=== PATIENT | female | born 1940 | race American Indian/Alaskan Native ===

== ENCOUNTER 2016-11-04 11:58 | Emergency (ER) | payer MEDICARE, OTHER ==
[2016-11-04 12:08] VITALS: BP 136/84
[2016-11-04] MEDS ORDERED: HYDROmorphone 1 MG/ML SYRINGE IM STA (12:58)
[2016-11-04] MEDS ORDERED: PROMETHAZINE 25 MG/1 ML VIAL IM STA (12:59)
[2016-11-04] MEDS ORDERED: DEXAMETHASONE 10 MG/ML VIAL PO STA (12:59)
[2016-11-04] MEDS ORDERED: PROMETHAZINE 25 MG/1 ML VIAL ONE (13:07)
[2016-11-04] MEDS ORDERED: DEXAMETHASONE 10 MG/ML VIAL ONE (13:07)
[2016-11-04] MEDS ORDERED: HYDROmorphone 1 MG/ML SYRINGE ONE (13:07)
--- NOTE | 2016-11-04 14:14 | XRAY Preliminary Report ---
Exam: XR Lumbar Spine 2 View IMPRESSION: 1. Grade 1 anterior listhesis of L4 on L5 measuring 6 mm. 2. Mild to moderate severe degenerative disk disease throughout the lumbar spine, as above. 3. 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 [facility] SITE ID: [id number]
--- NOTE | 2016-11-04 14:17 | XRAY Report ---
EXAM: LUMBOSACRAL SPINE RADIOGRAPHY EXAM DATE: 11/04/2016 01:08 PM. CLINICAL HISTORY: Acute low back pain, radiating to left leg. COMPARISONS: None. TECHNIQUE: 3 views. FINDINGS: Alignment: Grade 1 anterior listhesis of L4 on L5 measuring 6 mm. Bones: Five jih-qmc-vgklkoc lumbar vertebral bodies are present. No fractures or bone lesions. Disks: Severe degenerative disk disease at L5-S1. Moderate degenerative disk disease at L4-L5 and L1- L2 and mild degenerative disk disease at L2-L3. 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 Sacroiliac Joints: Unremarkable. Soft Tissues: Atherosclerotic disease of the abdominal aorta. IMPRESSION: 1. Grade 1 anterior listhesis of L4 on L5 measuring 6 mm. 2. Mild to moderate severe degenerative disk disease throughout the lumbar spine, as above. 3. 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 [facility] Referring Provider Line: [phone] SITE ID: [id number]
--- NOTE | 2016-11-04 14:44 | ED Physician Documentation ---
PD HPI BACK PAIN - Stated complaint Stated Complaint: L HIP PX - Chief complaint Chief Complaint: Ext Problem - History obtained from History obtained from: Patient, Family (Spouse) - History of Present Illness Timing - onset: How many days ago (2) Timing - details: Still present Location: Left Quality: Pain Associated symptoms: No: Fever, Weakness, Numbness, Incontinent of urine Worsened by: Movement, Twisting Similar symptoms before: No diagnosis - Additional information Additional information: The patient is a pleasant 76-year-old female who presents complaining of left hip pain that started 2 days ago and became worse this morning. The pain radiates from her left sciatic region down her anterolateral thigh to her knee. She denies fever, numbness or weakness, or urinary incontinence. She denies any recent fall or other traumatic injury. She reports history of similar symptoms intermittently in the past, but never this bad before. She has history of arthritis, and has attributed her left hip pain to arthritis. Review of Systems Constitutional: denies: Fever Ears: denies: Tinnitus/ringing Nose: denies: Congestion Throat: denies: Sore throat Cardiac: denies: Chest pain / pressure Respiratory: denies: Dyspnea, Cough GI: denies: Abdominal Pain, Nausea, Vomiting : denies: Dysuria, Incontinent Skin: denies: Rash Musculoskeletal: reports: Back pain, Extremity pain (left hip). 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 HEENT: Cataracts - Present Medications Home Medications: Ambulatory Orders Medication Instructions Recorded Confirmed Aspirin [Aspir-Low] 1 tab DAILY 09/15/15 Cyclobenzaprine HCl 09/15/15 Metoprolol Tartrate 25 mg PO BID 09/15/15 09/15/15 Simvastatin 20 mg PO DAILY 09/15/15 09/15/15 Triamterene/Hydrochlorothiazid 1 tab PO DAILY 09/15/15 09/15/15 [Triamterene-Hctz 37.5-25 mg Cp] oxyCODONE [Roxicodone] 5 mg PRN 09/15/15 Cyclobenzaprine [Flexeril] 10 mg PO TID PRN #20 tablet 11/04/16 Diclofenac Sodium [Voltaren] 11/04/16 Fluticasone Propionate 16 gm NS DAILY 11/04/16 11/04/16 HYDROcod/ACETAM 5/325 [[place] 5/325] 1 - 2 ea PO Q6H PRN #20 tablet 11/04/16 - Allergies Allergies/Adverse Reactions: Allergies Allergy/AdvReac Type Severity Reaction Status Date / Time codeine Allergy Unknown Verified 11/04/16 12:08 erythromycin base Allergy Unknown Verified 11/04/16 12:08 - Social History Does the pt smoke?: Yes Smoking Status: Current every day smoker Does the pt drink ETOH?: Yes Does the pt have substance abuse?: No PD ED PE NORMAL - Vitals Vital signs reviewed: Yes (borderline hypertension.) - General General: Alert and oriented X 3, Well developed/nourished - HEENT HEENT: Atraumatic - Neck Neck: No bony TTP - Cardiac Cardiac: RRR, No murmur - Respiratory Respiratory: No respiratory distress, Clear bilaterally - Abdomen Abdomen: Soft, Non tender, Other (Rotund abdomen.) - Back Back: No CVA TTP, No spinal TTP, Other (There is tenderness to palpation over the left sacroiliac joint. There is no tenderness to palpation over spinous processes.) - Derm Derm: No rash - Extremities Extremities: No edema, No calf tenderness / cord, Other (Straight leg raise test is positive on the left at 30 elevation; negative on the right.) - Neuro Neuro: Alert and oriented X 3, No motor deficit, No sensory deficit, Other ( Deep tendon reflexes are 2+ and equal bilaterally at the patellar and Achilles tendons.) Results - Vitals Vitals: Oxygen O2 Source Room air - Rads (name of study) Lumbar Spine Radiology: Prelim report reviewed, EMP read contemporaneously, See rad report ( Grade 1 anterior listhesis of L4 on L5, measuring 6 mm. Mild to moderate severe degenerative disc disease throughout the lumbar spine. 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 Because of her age lumbar x-rays were performed. These revealed degenerative disease, without lytic lesion. Treatment in the emergency department included administration of dexamethasone 10 mg orally, and hydromorphone 2 mg Im with Phenergan 12.5 mg IM. Her symptoms markedly improved with the above treatment, and she demonstrated ability to ambulate with a steady gait. She is being discharged with prescriptions for Flexeril and for Vicodin, 20 tablets. I discussed with her and her the likely diagnosis, symptomatic treatment and outpatient follow-up, as well as potentially worrisome signs or symptoms that should prompt reevaluation in the emergency department. Departure - Departure Disposition: 01 Home, Self Care Clinical Impression: Sciatica of left side Condition: Stable Instructions: ED Sciatica Follow-Up: Zander Hernadez MD [Primary Care Provider] - Prescriptions: Cyclobenzaprine [Flexeril] 10 mg PO TID PRN #20 tablet PRN Reason: Spasms HYDROcod/ACETAM 5/325 [[place] 5/325] 1 - 2 ea PO Q6H PRN #20 tablet PRN Reason: Pain Comments: Apply ice pack to your lower back intermittently for the next 4 days. You can use Vicodin as prescribed if needed for pain. You can use Flexeril as prescribed if needed for muscle spasms. Let pain be your guide to activity level. Follow-up with your primary physician within 1-2 weeks. Call to schedule an appointment. Return to the emergency department if you develop increasing pain despite the pain medication, or otherwise worsening symptoms. Discharge Date/Time: 11/04/16 15:08
== END 2016-11-04 15:08 | disposition home or self-care (01) ==
LOC: ED 11:58
DX: M54.42 Lumbago with sciatica, left side (principal); I10 Essential (primary) hypertension; E78.00 Pure hypercholesterolemia, unspecified; M19.90 Unspecified osteoarthritis, unspecified site; Z79.82 Long term (current) use of aspirin; F17.200 Nicotine dependence, unspecified, uncomplicated
CPT/HCPCS: 72100; 96372; 99283; J1170

== ENCOUNTER 2016-11-12 11:31 | Outpatient (CLI) | payer MEDICARE, OTHER ==
--- NOTE | 2016-11-13 14:24 | Mammography Report ---
DIGITAL SCREENING MAMMOGRAM: 11/12/2016 CLINICAL INDICATION: A 76-year-old with family history of breast cancer, history of benign biopsy, fo r screening. COMPARISON: 10/2014, 09/2013, 09/2012, 08/2011, 08/2010, 08/2009. TECHNIQUE: Routine CC and MLO projections were obtained of the breasts. FINDINGS: The breasts again demonstrate heterogeneously dense fibroglandular parenchyma bilaterally. There is a possible obscured nodule in the right upper inner posterior breast. Further evaluation wi th spot compression views and possible ultrasound is recommended. Coarse, typically benign calcificat ions are present. No mammographically suspicious findings are appreciated in the left breast. IMPRESSION: INCOMPLETE EXAMINATION. RECOMMENDATION: ADDITIONAL EVALUATION OF THE RIGHT BREAST ABOVE. BIRADS CATEGORY 0-INCOMPLETE. STANDARD QUALIFYING STATEMENTS 1. This examination was reviewed with the aid of Computer-Aided Detection (CAD). 2. A negative or benign imaging report should not delay biopsy if clinically suspicious findings are present. Consider surgical consultation if warranted. More than 5% of cancers are not identified by i maging. 3. Dense breasts may obscure an underlying neoplasm. JOB #: [id number] EXT JOB #:[id number]
== END 2016-11-12 11:32 | disposition home or self-care (01) ==
LOC: DI.N 11:31
PROVIDERS: ATTEND Physician Assistant
DX: Z12.31 Encounter for screening mammogram for malignant neoplasm of breast (principal)
CPT/HCPCS: 77067

== ENCOUNTER 2016-11-15 13:44 | Outpatient (CLI) | payer MEDICARE, OTHER ==
--- NOTE | 2016-11-15 15:40 | XRAY Report ---
LEFT HIP AND PELVIS: 11/15/2016 CLINICAL INDICATION: Left hip pain. FINDINGS: Frontal view of the hips and pelvis and frogleg lateral view of the left hip demonstrate m ild osteoarthritis. There is no evidence of fracture or dislocation. No radiopaque foreign body is appreciated in the soft tissues. IMPRESSION: MILD LEFT HIP OSTEOARTHRITIS. JOB #: [id number] EXT JOB #:[id number]
== END 2016-11-15 13:45 | disposition home or self-care (01) ==
LOC: DI.N 13:44
PROVIDERS: ATTEND Internal Medicine
DX: M25.552 Pain in left hip (principal); M16.12 Unilateral primary osteoarthritis, left hip

== ENCOUNTER 2016-11-23 12:38 | Emergency (ER) | payer MEDICARE, OTHER ==
--- NOTE | 2016-11-23 13:19 | ED Physician Documentation ---
PD HPI ABD PAIN - Stated complaint Stated Complaint: FEMALE - Chief complaint Chief Complaint: Abd Pain - History obtained from History obtained from: Patient - History of Present Illness Timing - onset: Yesterday Timing - details: Gradual onset, Waxing and waning Quality: Aching Location: Suprapubic Radiation: No: Left flank, Right flank Improved by: No: Eating Worsened by: No: Eating Associated symptoms: Fever, Nausea, Dysuria, Loss of appetite. No: Vomiting, Diarrhea, Chest pain, Near syncope / syncope Similar symptoms before: Diagnosis (UTI a month ago, Rx with ?Bactrim) Review of Systems Constitutional: reports: Fever, Chills Nose: denies: Rhinorrhea / runny nose, Congestion Throat: denies: Sore throat Respiratory: denies: Cough GI: reports: Abdominal Pain, Nausea. denies: Vomiting, Diarrhea : reports: Dysuria, Frequency. denies: Hematuria, Discharge Skin: denies: Rash, Lesions Neurologic: reports: Generalized weakness. 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 HEENT: Cataracts - Present Medications Home Medications: Ambulatory Orders Medication Instructions Recorded Confirmed Aspirin [Aspir-Low] 1 tab DAILY 09/15/15 Cyclobenzaprine HCl 09/15/15 Metoprolol Tartrate 25 mg PO BID 09/15/15 09/15/15 Simvastatin 20 mg PO DAILY 09/15/15 09/15/15 Triamterene/Hydrochlorothiazid 1 tab PO DAILY 09/15/15 09/15/15 [Triamterene-Hctz 37.5-25 mg Cp] oxyCODONE [Roxicodone] 5 mg PRN 09/15/15 Cyclobenzaprine [Flexeril] 10 mg PO TID PRN #20 tablet 11/04/16 Diclofenac Sodium [Voltaren] 11/04/16 Fluticasone Propionate 16 gm NS DAILY 11/04/16 11/04/16 HYDROcod/ACETAM 5/325 [[place] 5/325] 1 - 2 ea PO Q6H PRN #20 tablet 08/21/17 Cephalexin [Keflex] 500 mg PO QID #24 capsule 11/23/16 Ondansetron Odt [Zofran] 4 mg TL Q6H PRN #15 tablet 11/23/16 Phenazopyridine [Pyridium] 200 mg PO TID PRN #15 tablet 11/23/16 - Allergies Allergies/Adverse Reactions: Allergies Allergy/AdvReac Type Severity Reaction Status Date / Time codeine Allergy Unknown Verified 11/23/16 12:50 erythromycin base Allergy Unknown Verified 11/23/16 12:50 - Social History Does the pt smoke?: Yes Smoking Status: Current every day smoker Does the pt drink ETOH?: Yes Does the pt have substance abuse?: No PD ED PE NORMAL - Vitals Vital signs reviewed: Yes - General General: Alert and oriented X 3, No acute distress, Well developed/nourished - HEENT HEENT: Moist mucous membranes, Pharynx benign - Neck Neck: Supple, no meningeal sign, No adenopathy - Cardiac Cardiac: RRR, No murmur - Respiratory Respiratory: Clear bilaterally - Abdomen Abdomen: Normal bowel sounds, Soft, Non tender, Non distended - Back Back: No CVA TTP - Derm Derm: Normal color, Warm and dry - Neuro Neuro: Alert and oriented X 3, No motor deficit, Normal speech Results - Vitals Vitals: Oxygen O2 Source Room air - Labs Labs: Microbiology 11/23/16 13:16 Urine Culture - Preliminary Urine,Clean Catch Escherichia Coli Laboratory Tests 11/23/16 13:16 Urine Color YELLOW Urine Clarity CLOUDY Urine pH 7.0 Ur Specific [place] 1.010 Urine Protein 30 H Urine Glucose (UA) NEGATIVE Urine Ketones NEGATIVE Urine Occult Blood MODERATE H Urine Nitrite NEGATIVE Urine Bilirubin NEGATIVE Urine Urobilinogen 0.2 (NORMAL) Ur Leukocyte Esterase LARGE H Urine RBC None Seen Urine WBC >25 H Urine WBC Clumps PRESENT Ur Epithelial Cells FEW Renal Tubular Ur Squamous Epith Cells NONE SEEN Urine Bacteria Many H Ur Microscopic Review INDICATED Urine Culture Comments INDICATED PD MEDICAL DECISION MAKING - ED course Complexity details: reviewed results, considered differential, d/w patient Departure - Departure Disposition: 01 Home, Self Care Clinical Impression: Dysuria Urinary tract infection Qualifiers: Urinary tract infection type: site unspecified Hematuria presence: without hematuria Qualified Code(s): N39.0 - Urinary tract infection, site not specified Condition: Stable Record reviewed to determine appropriate education?: Yes Instructions: ED UTI Cystitis Female Follow-Up: Zander Hernadez MD [Primary Care Provider] - Prescriptions: Cephalexin [Keflex] 500 mg PO QID #24 capsule Phenazopyridine [Pyridium] 200 mg PO TID PRN #15 tablet PRN Reason: Pain Ondansetron Odt [Zofran] 4 mg TL Q6H PRN #15 tablet PRN Reason: Nausea / Vomiting Comments: Drink lots of fluids. Cephalexin as directed for the urinary tract infection. Add [place]. HEENT if needed for urinary discomfort. Continue your other usual medications and use the Percocet if needed for pains. Recheck if not improved over the next 2-3 days and return sooner if worse. Discharge Date/Time: 11/23/16 14:34
[2016-11-23 13:43] VITALS: BP 103/57
[2016-11-23 13:46] LABS: BILIRUBIN,URINE NEGATIVE (NEGATIVE)
[2016-11-23] MEDS ORDERED: oxyCOD/ACETAMIN 5 MG/325 MG TABLET PO STA (13:54)
[2016-11-23] MEDS ORDERED: PHENAZOPYRIDINE 100 MG TABLET PO STA (13:54)
[2016-11-23 13:55] LABS: UA w/ MICROSCOPIC CHARGE YES; UR CULTURE IF IND INDICATED; WBC,URINE >25 /HPF (0-5)
[2016-11-23] MEDS ORDERED: oxyCOD/ACETAMIN 5 MG/325 MG TABLET PO ONE (14:02)
[2016-11-23] MEDS ORDERED: PHENAZOPYRIDINE 100 MG TABLET PO ONE (14:02)
[2016-11-23] MEDS ORDERED: CEPHALEXIN 250 MG CAPSULE PO STA (14:13)
[2016-11-23] MEDS ORDERED: CEPHALEXIN 250 MG CAPSULE PO ONE (14:32)
== END 2016-11-23 14:34 | disposition home or self-care (01) ==
LOC: ED 12:38
DX: N39.0 Urinary tract infection, site not specified (principal); I10 Essential (primary) hypertension; F17.200 Nicotine dependence, unspecified, uncomplicated
CPT/HCPCS: 81001; 87086; 87181; 99283; A9270; 81003

== ENCOUNTER 2016-12-23 11:26 | Outpatient (CLI) | payer MEDICARE, OTHER ==
--- NOTE | 2016-12-23 15:46 | Mammography Report ---
DIGITAL DIAGNOSTIC RIGHT MAMMOGRAM: 12/23/2016 CLINICAL INDICATION: Abnormal screening. TECHNIQUE: Right true lateral and spot compression views. COMPARISON: 11/12/2016, 10/25/2014, 10/11/2013, 09/25/2012, 08/30/2011, 08/22/2010, 08/25/2009. FINDINGS: The right breast demonstrates scattered fibroglandular densities. In the right slightly up per inner central breast, there is a persistent nodule, with some irregularity of the margins, measur ing 1.2 cm. No definite associated calcifications are appreciated. Please also refer to right breast ultrasound of the same day. IMPRESSION: SUSPICIOUS ABNORMALITY, WITH A SOLID NODULE ON ULTRASOUND CORRELATING WITH THE MAMMOGRAP HIC ABNORMALITY. RECOMMENDATION: BIOPSY. THE NODULE APPEARS AMENABLE TO ULTRASOUND-GUIDED CORE NEEDLE BIOPSY. BIRADS CATEGORY 4-SUSPICIOUS ABNORMALITY. Results and recommendations discussed with the patient at the time of the examination, and called to Belen Chaidez PA-C, on 12/23/2016. Biopsy is scheduled for 12/31/2016 at 12:15 p.m. STANDARD QUALIFYING STATEMENTS 1. This examination was reviewed with the aid of Computer-Aided Detection (CAD). 2. A negative or benign imaging report should not delay biopsy if clinically suspicious findings are present. Consider surgical consultation if warranted. More than 5% of cancers are not identified by i maging. 3. Dense breasts may obscure an underlying neoplasm. JOB #: [id number] EXT JOB #:[id number]
--- NOTE | 2016-12-24 16:09 | Ultrasound Report ---
RIGHT BREAST ULTRASOUND: 12/23/2016 CLINICAL INDICATION: Persistent nodule on mammogram. TECHNIQUE: Real-time scanning was performed with labor representative static images obtained. FINDINGS: Ultrasound of the right breast was performed. In the upper inner quadrant, 2:30 position, 5 cm from the nipple, there is a hypoechoic 12 x 10 x 8 mm nodule, with irregular margins and some posterior acoustic shadowing. The appearance is suspicious. Scanning of the right axilla reveals no evidence of lymphadenopathy. IMPRESSION: SUSPICIOUS SOLID NODULE IN THE RIGHT UPPER INNER QUADRANT. RECOMMENDATION: BIOPSY. THE NODULE APPEARS AMENABLE TO ULTRASOUND-GUIDED CORE NEEDLE BIOPSY. BIRADS CATEGORY 4-SUSPICIOUS ABNORMALITY. Results and recommendations discussed with the patient at the time of the examination, and called to Belen Chaidez PA-C, on 12/23/2016. Biopsy is scheduled for 12/31/2016 at 12:[address] [facility]ENTER[facility]
== END 2016-12-23 11:27 | disposition home or self-care (01) ==
LOC: DI 11:26
PROVIDERS: ATTEND Physician Assistant
DX: N63.12 Unspecified lump in the right breast, upper inner quadrant (principal)
CPT/HCPCS: 76642; G0206

== ENCOUNTER 2016-12-31 11:59 | Outpatient (CLI) | payer MEDICARE, OTHER ==
[2016-12-31] MEDS ORDERED: BUPIVACAINE 0.5%-EPI 1:200000 PF 10 ML VIAL SUBQ ONE (14:15)
[2016-12-31] MEDS ORDERED: BUFFERED LIDOCAINE 10 ML SYRINGE IU ONE (14:15)
[2016-12-31 16:03] VITALS: BP 135/60
--- NOTE | 2016-12-31 17:59 | Ultrasound Report ---
ULTRASOUND-GUIDED CORE NEEDLE BIOPSY RIGHT BREAST: 12/31/2016 CLINICAL INDICATION: A 1.2 cm nodule right upper-inner breast. Informed consent was obtained. Using standard aseptic technique, both 1% buffered lidocaine and Sensorcaine were injected into the right breast for local anesthesia. A small felisha was made in the skin with a #11 blade. A 12- gauge Celero vacuum assisted device was used to obtain 4 specimens. A Celero marker was placed into the biopsy cavity under ultrasound guidance. The patient was taken to a separate mammography machine and a two view digital mammogram was performed, documenting the marker in the expected location, and no significant post-biopsy hematoma. The wound was dressed and ice applied. The patient was observed for approximately 15 minutes, then was discharged from [facility] in good condition following instructions on wound care and obtaining biopsy results. The tissue was sent for histologic analysis. IMPRESSION: ULTRASOUND-GUIDED BIOPSY OF THE RIGHT BREAST. An addendum will be made to this report when pathology is reviewed to establish concordance. JOB #: [id number] EXT JOB #: [id number] WILLIAN
== END 2016-12-31 12:00 | disposition home or self-care (01) ==
LOC: DI 11:59
PROVIDERS: ATTEND Physician Assistant
DX: C50.211 Malignant neoplasm of upper-inner quadrant of right female breast (principal); Z17.1 Estrogen receptor negative status [ER-]
CPT/HCPCS: 19083; G0206; 88305; 88341; 88342; 88360

== ENCOUNTER 2017-01-02 09:07 | Day surgery (SDC) | payer MEDICARE, OTHER ==
[2017-01-02] MEDS ORDERED: LACTATED RINGERS 1,000 ML IV ONE (09:47)
[2017-01-02] MEDS ORDERED: MIDAZOLAM 2 MG/2 ML VIAL IVP ONE (10:46)
[2017-01-02] MEDS ORDERED: fentaNYL 100 MCG/2 ML VIAL IVP ONE (10:46)
[2017-01-02 11:40] VITALS: BP 145/68
== END 2017-01-02 09:08 | disposition home or self-care (01) ==
LOC: SDS 09:07
PROVIDERS: ATTEND Surgery
PROC: 0DBH8ZX Excision of Cecum, Via Natural or Artificial Opening Endoscopic, Diagnostic (ICD-10-PCS; 2017-01-02)
PROC: 0DBL8ZX Excision of Transverse Colon, Via Natural or Artificial Opening Endoscopic, Diagnostic (ICD-10-PCS; principal; 2017-01-02 10:15)
DX: D12.3 Benign neoplasm of transverse colon (principal); D12.0 Benign neoplasm of cecum; K64.8 Other hemorrhoids; K57.30 Diverticulosis of large intestine without perforation or abscess without bleeding; I10 Essential (primary) hypertension; E78.5 Hyperlipidemia, unspecified; Z79.82 Long term (current) use of aspirin; F17.210 Nicotine dependence, cigarettes, uncomplicated
CPT/HCPCS: 45380; J7120

== ENCOUNTER 2017-09-18 13:23 | Outpatient (CLI) | payer MEDICARE, OTHER ==
--- NOTE | 2017-09-18 13:47 | XRAY Report ---
Procedure Date: 09/18/2017 Accession Number: [id number] / [id number] Procedure: XRN - Chest 2 View X-Ray CPT Code: 07067 FULL RESULT: EXAM: Chest 2 View X-Ray DATE: 09/18/2017 1:37 PM CLINICAL HISTORY: COPD, RECENT RNA, FOLLOW UP XRAY COMPARISON: Chest CT 10/23/2015 TECHNIQUE: 2 views. FINDINGS: Lungs/Pleura: No focal opacities evident. No pneumothorax or pleural effusion. Normal volumes. Mediastinum: Heart and mediastinal contours are unremarkable. Other: Left subclavian Mediport terminating in the superior vena cava. IMPRESSION: No evidence of acute cardiopulmonary disease. [facility]
== END 2017-09-18 13:24 | disposition home or self-care (01) ==
LOC: DI.N 13:23
PROVIDERS: ATTEND Internal Medicine
DX: J44.9 Chronic obstructive pulmonary disease, unspecified (principal)
CPT/HCPCS: 71046

== ENCOUNTER 2017-11-24 13:34 | Outpatient (CLI) | payer MEDICARE, OTHER ==
--- NOTE | 2017-11-25 09:42 | XRAY Report ---
Reason: Left hip pain Procedure Date: 11/24/2017 Accession Number: [id number] / [id number] Procedure: XR - Hip w/Pelvis 1V LT CPT Code: FULL RESULT: EXAM: LEFT HIP AND PELVIS RADIOGRAPHY EXAM DATE: 11/24/2017 02:12 PM. HISTORY: Left hip pain. COMPARISONS: 11/15/2016. TECHNIQUE: 1 view of the pelvis and 1 view of the hip. FINDINGS: Bones: Normal. No fracture or bone lesion. Joints: Minimal bilateral hip joint space narrowing with marginal lipping. Unremarkable SI joints and pubic symphysis. Degenerative changes in lower lumbar spine. Soft Tissues: Unremarkable. IMPRESSION: Mild degenerative changes similar to previous study. [facility]
== END 2017-11-24 13:35 | disposition home or self-care (01) ==
LOC: DI 13:34
PROVIDERS: ATTEND Internal Medicine
DX: M25.552 Pain in left hip (principal)

== ENCOUNTER 2018-09-07 07:41 | Outpatient (CLI) | payer MEDICARE, OTHER ==
--- NOTE | 2018-09-07 14:20 | Mammography Report ---
Reason: RT BREAST CA Procedure Date: 09/07/2018 Accession Number: [id number] / [id number] Procedure: JEFFERY - Diagnostic Dig Bilat CPT Code: FULL RESULT: EXAM: Diagnostic Dig Bilat DATE: 09/07/2018 10:07 AM CLINICAL HISTORY: Diagnostic examination. First mammogram since lumpectomy in December 2016. TECHNIQUE: (B) - Bilateral CC and MLO views were obtained. Right spot magnified CC, right spot magnified ML and right ML images are obtained. COMPARISON: 12/31/2016 through 09/25/2012. PARENCHYMAL PATTERN: (A) - The breast(s) demonstrate(s) scattered fibroglandular densities. FINDINGS: There are typically benign vascular calcifications. There are postlumpectomy changes in the right breast, probably benign. There are no suspicious masses, calcifications, or areas of distortion. IMPRESSION: Probably Benign. BI-RADS category 3. RECOMMENDATION: (12MOS) - Recommend 12 month follow-up exam. BI-RADS CATEGORY: (3) - Probably Benign. STANDARD QUALIFYING STATEMENTS: 1. This examination was not reviewed with the aid of Computer-Aided Detection (CAD). 2. A negative or benign imaging report should not preclude biopsy if clinically suspicious findings are present. 3. Dense breasts may obscure an underlying neoplasm. 4. This examination was reviewed with the aid of 3D breast imaging (tomosynthesis).
== END 2018-09-07 07:42 | disposition home or self-care (01) ==
LOC: DI 07:41
PROVIDERS: ATTEND Family Medicine
DX: C50.811 Malignant neoplasm of overlapping sites of right female breast (principal)
CPT/HCPCS: 77066; G0279; 77062

== ENCOUNTER 2018-10-09 13:20 | Outpatient (CLI) | payer MEDICARE, OTHER ==
--- NOTE | 2018-10-09 16:50 | XRAY Report ---
Reason: L HIP PAIN Procedure Date: 10/09/2018 Accession Number: [id number] / [id number] Procedure: XRN - Hip w/Pelvis 2-3V LT CPT Code: FULL RESULT: EXAM: LEFT HIP RADIOGRAPHY EXAM DATE: 10/09/2018 01:43 PM. CLINICAL HISTORY: L HIP PAIN. COMPARISON: HIP 1 VIEW LT 11/24/2017 1:59 PM LUMBAR SPINE 2 VIEW 11/04/2016 1:07 PM HIP W/PELVIS 2-3V LT 11/15/2016 2:14 PM. TECHNIQUE: 2 views. FINDINGS: Bones: Diffuse mineralization. No fracture or focus of bony destruction. Joints: No dislocation. Mild degenerative changes about the left hip with early axial migration of the femoral head relative to the acetabulum. No evidence for AVM. Soft Tissues: Normal. No soft tissue swelling. Other: Interval posterior fusion (L4-S1 in parentheses, hardware in place. IMPRESSION: 1. Mild degenerative changes about the left hip. No fracture or focus of bony destruction. 2. Interval posterior lumbosacral fusion, hardware in place.. [facility]
== END 2018-10-09 13:21 | disposition home or self-care (01) ==
LOC: DI.N 13:20
PROVIDERS: ATTEND Internal Medicine
DX: M16.12 Unilateral primary osteoarthritis, left hip (principal); Z98.1 Arthrodesis status

== ENCOUNTER 2018-10-28 15:11 | Outpatient (CLI) | payer MEDICARE, OTHER ==
--- NOTE | 2018-10-29 10:31 | XRAY Report ---
Reason: LUMBAR PAIN Procedure Date: 10/28/2018 Accession Number: [id number] / [id number] Procedure: XRN - Lumbar Spine 2 View CPT Code: FULL RESULT: EXAM: LUMBOSACRAL SPINE RADIOGRAPHY EXAM DATE: 10/28/2018 03:35 PM. CLINICAL HISTORY: Lumbar pain. Lumbar radiculopathy. COMPARISONS: LUMBAR SPINE 2 VIEW 11/04/2016 1:07 PM. TECHNIQUE: 3 views. FINDINGS: Alignment: Dextroscoliosis of the lumbar spine with progression. Grade 1 anterolisthesis of L4 on L5. Grade 1/2 anterolisthesis of L5 on S1. Bones: Five usk-dsp-jojxsmv lumbar vertebral bodies are present. No acute fracture or bony lesion. Degenerative spurring. Disks: Changes are seen from L4-S1 posterior fusion and anterior fusion and interval disk displacement L4-L5 and L5-S1 in the interval. Mild to moderate degenerative changes are seen involving the remainder of the lumbar spine chest progressed. Facets: Lumbar facet arthropathy. Sacroiliac Joints: Mild degenerative changes. Soft Tissues: Vascular calcifications. Surgical clips seen in right upper quadrant and pelvis. IMPRESSION: 1. Status post L4-S1 posterior anterior fusion and intervertebral disk displacement. 2. Progression of intervertebral disk degenerative changes of the remainder of the lumbar spine. [facility]
== END 2018-10-28 15:12 | disposition home or self-care (01) ==
LOC: DI.N 15:11
DX: M47.816 Spondylosis without myelopathy or radiculopathy, lumbar region (principal); M51.26 Other intervertebral disc displacement, lumbar region; M51.27 Other intervertebral disc displacement, lumbosacral region; Z98.1 Arthrodesis status
CPT/HCPCS: 72100

== ENCOUNTER 2019-02-15 12:42 | Outpatient (CLI) | payer MEDICARE, OTHER ==
[2019-02-15] MEDS ORDERED: GADOBUTROL 7.5 MMOL/7.5 ML VIAL ONE (13:25)
--- NOTE | 2019-02-15 15:12 | MRI Report ---
Reason: INTERVERTEBRAL DISC DEGENERATION, LUMBAR REGION Procedure Date: 02/15/2019 Accession Number: [id number] / [id number] Procedure: MRI - Lumbar Spine W/WO CPT Code: Final Report FULL RESULT: EXAM: MRI LUMBAR SPINE WITHOUT AND WITH CONTRAST EXAM DATE: 02/15/2019 02:10 PM. CLINICAL HISTORY: Hip pain, low back pain COMPARISONS: None. TECHNIQUE: Multiplanar, multisequence T1-weighted and fluid-sensitive sequences of the lumbar spine from T12 to S1 before and after administration of intravenous contrast. Other: None. IV contrast: Yes, without him with 7.5 mL Gadavist. FINDINGS: Neurologic Structures: The conus terminates at L1-L2. The conus is unremarkable. Alignment: There is 11 degrees dextroscoliosis measured between L1-L2 and L5-S1. Bone Marrow: Patient status post prior L4-L5 and L5-S1 diskectomies with anterior posterior fusions. There is artifact related to fusion hardware. Disk Levels/Facets: T12-L1: Unremarkable. L1-L2: Unremarkable. L2-L3: Unremarkable. L3-L4: There is a soft tissue mass in the left aspect of the central canal measuring 15 x 18 mm in transverse dimensions and 2.5 cm in AP dimension. There is severe central canal narrowing at the mid L3 through L3-L4 levels. There is severe disk height loss at L3-L4. This demonstrates low T2 and intermediate T1 signal and there is no enhancement. There is prominent edema with enhancement of the L3 vertebral body. There is paravertebral soft tissue thickening adjacent to left aspect of the disk space. There is mild left neural foraminal narrowing. Patient is status post prior left L3 laminectomy. There is no abnormal enhancement. L4-L5: Status post diskectomy, posterior decompression, and anterior and posterior fusions. No evidence of central canal or neural foraminal narrowing. L5-S1: Status post diskectomy and anterior posterior fusion. No central canal narrowing. Likely mild right neural foraminal narrowing. Spinal Canal: No enhancing masses within the spinal canal. No epidural abscess. Musculature: Normal. No edema, abnormal enhancement, or fatty atrophy. Other: Partly imaged at least 5.2 cm hepatic cyst. IMPRESSION: 1. Apparent large extruded L3-L4 disk with severe central canal narrowing at the L3 and L3-L4 levels. Configuration is unusual, however there is no enhancement to suggest solid mass. 2. Prominent endplate edema at L3-L4 likely representing severe degenerative change. In appropriate clinical setting, infection may have similar appearance. 3. L4-L5 and L5-S1 status post diskectomies and anterior and posterior fusions without central canal narrowing. RADIA Findings discussed with Dr. Hernadez at time of dictation.
[2019-02-15] MEDS ORDERED: GADOBUTROL 7.5 MMOL/7.5 ML VIAL IVP ONE (15:30)
== END 2019-02-15 12:43 | disposition home or self-care (01) ==
LOC: DI 12:42
PROVIDERS: ATTEND Family Medicine
DX: M51.36 Other intervertebral disc degeneration, lumbar region (principal); M51.26 Other intervertebral disc displacement, lumbar region; Z98.1 Arthrodesis status
CPT/HCPCS: 72158; A9585

== ENCOUNTER 2019-03-03 12:29 | Outpatient (CLI) | payer MEDICARE, OTHER ==
--- NOTE | 2019-03-03 13:42 | Mammography Report ---
Reason: RT BREAST CA, HX LUMPECTOMY RT WILLIAM Procedure Date: 03/03/2019 Accession Number: [id number] / [id number] Procedure: JEFFERY - Diagnostic Dig RT CPT Code: Final Report FULL RESULT: EXAM: Diagnostic Dig RT DATE: 03/03/2019 1:27 PM CLINICAL HISTORY: Status post right lumpectomy for six-month follow-up TECHNIQUE: (R) - Right CC and MLO views were obtained. COMPARISON: 09/07/2018, 12/31/2016, 11/12/2016, 10/25/2014 and 10/11/2013 PARENCHYMAL PATTERN: (A) - The breasts demonstrate scattered fibroglandular densities bilaterally. FINDINGS: Today's study is technically limited by the patient's difficulty in cooperating due to back pain. There has been no significant interval change. Scattered calcifications are grossly similar to prior studies. There are no new suspicious masses, calcifications, or areas of distortion. IMPRESSION: Benign findings. BI-RADS category 2. Right breast RECOMMENDATION: (6MOS) - Recommend 6 month follow-up bilateral mammogram. BI-RADS CATEGORY: (2) - Benign Findings. STANDARD QUALIFYING STATEMENTS: 1. This examination was not reviewed with the aid of Computer-Aided Detection (CAD). 2. A negative or benign imaging report should not preclude biopsy if clinically suspicious findings are present. 3. Dense breasts may obscure an underlying neoplasm. 4. This examination was reviewed without the aid of 3D breast imaging (tomosynthesis).
== END 2019-03-03 12:30 | disposition home or self-care (01) ==
LOC: DI 12:29
PROVIDERS: ATTEND Family Medicine
DX: C50.811 Malignant neoplasm of overlapping sites of right female breast (principal)

== ENCOUNTER 2019-05-06 15:25 | Outpatient (CLI) | payer MEDICARE, OTHER ==
[2019-05-06 16:38] LABS: CALCIUM 9.5 mg/dL (8.5-10.3)
[2019-05-06] MEDS ORDERED: IOVERSOL 320 100 ML VIAL IVP ONE ×2 (16:46→19:07)
--- NOTE | 2019-05-10 15:24 | CT Report ---
Reason: BILAT LOWER ABDOMINAL PAIN Procedure Date: 05/06/2019 Accession Number: [id number] / [id number] Procedure: CT - Abdomen/Pelvis W CPT Code: Final Report FULL RESULT: EXAM: CT ABDOMEN AND PELVIS EXAM DATE: 05/06/2019 05:27 PM. CLINICAL HISTORY: BILAT LOWER ABDOMINAL PAIN. COMPARISONS: CHEST SCREEN LOW DOSE W/O 10/23/2015 1:19 PM. TECHNIQUE: Routine helical CT imaging was performed through the abdomen and pelvis. IV contrast: 100 mL OPTIRAY 320. Enteric contrast: No. Reconstructions: Coronal and sagittal. In accordance with CT protocol optimization, one or more of the following dose reduction techniques were utilized for this exam: automated exposure control, adjustment of mA and/or KV based on patient size, or use of iterative reconstructive technique. FINDINGS: Lung Bases: Small hiatal hernia. Liver: 6.2 cm anterior liver dome cyst with water attenuation, previously 4.[address] 10/23/2015. No septations or calcifications evident. Gallbladder/Bile Ducts: Prior cholecystectomy. Spleen: Normal. Pancreas: Normal. Adrenal Glands: Normal. Kidneys: Probable small right renal cysts. No suspicious masses or hydronephrosis. Peritoneal Cavity/Bowel: Distal sigmoid anastomotic sutures. No free fluid, free air or adenopathy. No masses or acute inflammatory process. Colonic diverticulosis. Collapsed hepatic flexure of colon, presumably from peristalsis. Pelvic Organs: Prior hysterectomy. Urinary bladder is grossly unremarkable. No adnexal abnormality. Vasculature: Moderate extensive atherosclerotic arterial calcifications. No abdominal aortic aneurysm. Bones: Prior L4-S1 fusion with posterior hardware and interbody spacers. Lumbar spine degenerative changes. Other: None. IMPRESSION: 1. No acute inflammatory process. 2. Hiatal hernia. 3. Prior cholecystectomy. 4. Large anterior right liver dome cyst. 5. Diverticulosis. RADIA
== END 2019-05-06 15:26 | disposition home or self-care (01) ==
LOC: DI 15:25
PROVIDERS: ATTEND Family Medicine
DX: R10.30 Lower abdominal pain, unspecified (principal); K44.9 Diaphragmatic hernia without obstruction or gangrene; Z90.49 Acquired absence of other specified parts of digestive tract; K76.89 Other specified diseases of liver; K57.30 Diverticulosis of large intestine without perforation or abscess without bleeding
CPT/HCPCS: 36415; 74177; 80048; Q9967

== ENCOUNTER 2019-09-07 14:55 | Emergency (ER) | payer MEDICARE, OTHER ==
--- NOTE | 2019-09-07 15:10 | ED Physician Documentation ---
PD HPI ABD PAIN - Stated complaint Stated Complaint: RT HIP PX - Chief complaint Chief Complaint: Back Pain - History obtained from History obtained from: Patient - History of Present Illness Timing - onset: How many days ago (3) Timing - duration: Days (3) Timing - details: Gradual onset, Still present Quality: Aching, Pain Location: Other (she has had pain right flank area and mid lumbar area, radiating to right gluteal and to top of right thigh. Not abd pain per se. Has had malodorous urine (or "down there" odor) and some urinary urgency/incontinence. Denies dysasthesias with wiping. No weakness of legs. Seen at PCP and referred ER) Radiation: Other (right inguinal area/top of thigh), Right flank Improved by: No: Eating Worsened by: No: Eating Associated symptoms: Dysuria, Loss of appetite. No: Fever, Nausea, Vomiting, Diarrhea, Constipation, Vaginal bleeding, Vaginal dc Similar symptoms before: Has not had sx before (chronic back pain and getting surgery L3L4 in September. This current pain is different than her back/sciatic pain.) Review of Systems Constitutional: denies: Fever, Chills Nose: denies: Rhinorrhea / runny nose, Congestion Throat: denies: Sore throat Respiratory: denies: Cough GI: denies: Abdominal Swelling, Nausea, Vomiting, Constipation, Diarrhea : reports: Frequency, Incontinent. denies: Dysuria, Discharge (but has noted some malodor) Musculoskeletal: reports: Back pain. denies: Neck pain Neurologic: denies: Focal weakness, Numbness PD PAST MEDICAL HISTORY - Past Medical History Cardiovascular: Hypertension, High cholesterol Respiratory: None Endocrine/Autoimmune: None GI: None : Other Psych: None Musculoskeletal: Osteoarthritis, Osteoporosis, Chronic back pain Derm: None - Past Surgical History Past Surgical History: Yes General: Cholecystectomy, Appendectomy, Bowel surgery Ortho: Rotator cuff repair /[employer]: Hysterectomy HEENT: Cataracts - Present Medications Home Medications: Ambulatory Orders Medication Instructions Recorded Confirmed Aspirin [Aspir-Low] 1 tab PO DAILY 09/15/15 09/07/19 Triamterene/Hydrochlorothiazid 1 tab PO DAILY 09/15/15 09/07/19 [Triamterene-Hctz 37.5-25 mg Cp] oxyCODONE [Roxicodone] 5 mg PO Q8HR PRN 09/15/15 09/07/19 Cyclobenzaprine [Flexeril] 10 mg PO TID PRN #20 tablet 11/04/16 09/07/19 Diclofenac Sodium [Voltaren] 1 unit TOP ONCE PRN 11/04/16 12/05/17 Fluticasone Propionate 16 gm NS DAILY 11/04/16 09/07/19 Cholecalciferol (Vitamin D3) 2,000 unit PO DAILY 01/02/17 09/07/19 [Vitamin D] Acetaminophen 500 mg PO Q8HR PRN 10/03/17 09/07/19 Cyanocobalamin (Vitamin B-12) 1 tab ORAL DAILY 10/03/17 09/07/19 [Vitamin B-12] Gabapentin 300 mg PO QID 10/03/17 10/03/17 Amlodipine Besylate 10 mg ORAL DAILY 09/07/19 09/07/19 Fluconazole [Diflucan] 150 mg PO Q3D #2 tablet 09/07/19 Loratadine [Claritin] 10 mg PO DAILY PRN 09/07/19 09/07/19 Multivit with Calcium,Iron,Min 1 tab ORAL DAILY 09/07/19 09/07/19 [Multiple Vitamins For Women] Oxycodone HCl 5 - 10 mg PO Q8H PRN #20 tablet 09/07/19 Oxycodone HCl/Acetaminophen 1 each PO DAILY PM 09/07/19 09/07/19 [Percocet 10-325 mg Tablet] - Allergies Allergies/Adverse Reactions: Allergies Allergy/AdvReac Type Severity Reaction Status Date / Time codeine Allergy Unknown Verified 09/07/19 15:01 erythromycin base Allergy Unknown Verified 09/07/19 15:01 - Social History Does the pt smoke?: Yes Smoking Status: Former smoker Does the pt drink ETOH?: Yes Does the pt have substance abuse?: No - Immunizations Immunizations are current?: Yes - POLST Patient has POLST: No PD ED PE NORMAL - Vitals Vital signs reviewed: Yes - General General: Alert and oriented X 3, Well developed/nourished, Other (seems in pain due to the back, some increased with movement. It is tender to palpation in area of upper lumbar right side toward left upper gluteal/SI area, and to inguinal area. Tender to touch in that area only. No rash nor sores. ) - Neck Neck: Supple, no meningeal sign, No adenopathy - Cardiac Cardiac: RRR, No murmur - Respiratory Respiratory: Clear bilaterally - Abdomen Abdomen: Normal bowel sounds, Soft, Non distended, No organomegaly, Other (tender without guarding right lower abd and inguinal area without masses. No guarding nor percussion tenderness. ) - Derm Derm: Normal color, Warm and dry, No rash - Neuro Neuro: Alert and oriented X 3, No motor deficit, Normal speech, Other (normal sensation inguinal area and gluteal. ) Results - Vitals Vitals: Vital Signs - 24 hr 09/07/19 09/07/19 09/07/19 15:01 15:15 17:21 Temperature 36.3 C L Heart Rate 83 84 72 Respiratory 16 18 16 Rate Blood Pressure 150/88 H 155/85 H 162/89 H O2 Saturation 97 97 95 09/07/19 18:13 Temperature Heart Rate 71 Respiratory 16 Rate Blood Pressure 158/97 H O2 Saturation 96 Oxygen O2 Source Room air - Labs Labs: Laboratory Tests 09/07/19 09/07/19 09/07/19 15:55 15:55 16:05 WBC 8.4 RBC 4.78 Hgb 13.8 Hct 42.4 MCV 88.7 MCH 28.9 MCHC 32.5 RDW 15.8 H Plt Count 224 MPV 9.5 Neut # (Auto) 4.5 Lymph # (Auto) 2.8 Andrew # (Auto) 0.7 Eos # (Auto) 0.4 Baso # (Auto) 0.1 Absolute Nucleated RBC 0.00 Nucleated RBC % 0.0 Sodium 138 Potassium 3.5 Chloride 97 L Carbon Dioxide 30 Anion Gap 11.0 BUN 22 H Creatinine 0.8 Estimated GFR (MDRD) 69 L Glucose 98 Calcium 9.8 Total Bilirubin 0.3 AST 19 ALT 14 Alkaline Phosphatase 92 Total Protein 8.1 Albumin 4.2 Globulin 3.9 Albumin/Globulin Ratio 1.1 Lipase 26 Urine Color LIGHT YELLOW Urine Clarity CLEAR Urine pH 7.5 Ur Specific [place] 1.010 Urine Protein NEGATIVE Urine Glucose (UA) NEGATIVE Urine Ketones NEGATIVE Urine Occult Blood NEGATIVE Urine Nitrite NEGATIVE Urine Bilirubin NEGATIVE Urine Urobilinogen 0.2 (NORMAL) Ur Leukocyte Esterase NEGATIVE Ur Microscopic Review NOT INDICATED Urine Culture Comments NOT INDICATED - Rads (name of study) KUB CT Radiology: Prelim report reviewed (no stone nor hydro. no acute findings to explain the pain. ), See rad report PD MEDICAL DECISION MAKING - ED course Complexity details: re-evaluated patient (improved pain with meds here. She is on chronic pain meds and may need to increase frequency with this acute new pain, so I wrote Rx for some added amount short term. She denies being on pain contract.), considered differential, d/w patient Departure - Departure Disposition: Home, Self Care Clinical Impression: Acute right flank pain Condition: Stable Record reviewed to determine appropriate education?: Yes Instructions: ED Acute Pain [facility] Follow-Up: Abe Calixto DO [Primary Care Provider] - Prescriptions: Fluconazole [Diflucan] 150 mg PO Q3D #2 tablet Oxycodone HCl 5 - 10 mg PO Q8H PRN #20 tablet PRN Reason: Pain Comments: Use the Diflucan once with a repeat in 3 days for possible vaginitis. Regarding the right hip and low back pain, increase your pain medication to every 6 hours if needed in the short-term. See how this does over the next couple of days. Recheck if not improving during that time and see if any development of new symptoms such as rash or such. Consider the possibility of early shingles though not really clear at this time. Discharge Date/Time: 09/07/19 18:46
[2019-09-07] MEDS ORDERED: HYDROmorphone 1 MG/ML CARPUJECT IVP STA (15:44)
[2019-09-07] MEDS ORDERED: KETOROLAC 15 MG/ML VIAL IVP STA (15:44)
[2019-09-07 16:05] LABS: BASOPHILS # (AUTO) 0.1 10^3/uL (0.0-0.1); BASOPHILS % (AUTO) 0.6 %; EOSINOPHILS # (AUTO) 0.4 10^3/uL (0.0-0.7); EOSINOPHILS % (AUTO) 4.4 %; HGB - HEMOGLOBIN 13.8 g/dL (12.0-16.0); LYMPHOCYTES # (AUTO) 2.8 10^3/uL (1.5-3.5); LYMPHOCYTES % (AUTO) 32.9 %; MEAN CORPUSCULAR HEMOGLOBIN 28.9 pg (27.0-31.0); MEAN CORPUSCULAR HGB CONC 32.5 g/dL (32.0-36.0); MEAN CORPUSCULAR VOLUME 88.7 fL (81.0-99.0); MEAN PLATELET VOLUME 9.5 fL (7.9-10.8); MONOCYTES # (AUTO) 0.7 10^3/uL (0.0-1.0); MONOCYTES % (AUTO) 8.3 %; NEUTROPHILS # (AUTO) 4.5 10^3/uL (1.5-6.6); NEUTROPHILS % (AUTO) 53.6 %; PLT - PLATELET COUNT 224 10^3/uL (130-450); RED BLOOD COUNT 4.78 10^6/uL (4.20-5.40); RED CELL DISTRIBUTION WIDTH 15.8 % (12.0-15.0); WHITE BLOOD COUNT 8.4 x10^3/uL (4.8-10.8)
[2019-09-07 16:15] LABS: ALBUMIN 4.2 g/dL (3.2-5.5); ALBUMIN/GLOBULIN RATIO 1.1 (1.0-2.2); BILIRUBIN,TOTAL 0.3 mg/dL (0.2-1.0); CALCIUM 9.8 mg/dL (8.5-10.3); CREATININE 0.8 mg/dL (0.4-1.0); TOTAL PROTEIN 8.1 g/dL (6.7-8.2)
[2019-09-07 16:18] LABS: BILIRUBIN,URINE NEGATIVE (NEGATIVE); CLARITY,URINE CLEAR (CLEAR); GLUCOSE, URINE (UA) NEGATIVE (NEGATIVE); KETONES,URINE (UA) NEGATIVE (NEGATIVE); LEUKOCYTE ESTERASE, URINE NEGATIVE (NEGATIVE); NITRITE,URINE NEGATIVE (NEGATIVE); OCCULT BLOOD,URINE NEGATIVE (NEGATIVE); PH,URINE 7.5 PH (5.0-7.5); PROTEIN,URINE NEGATIVE (NEGATIVE); UROBILINOGEN,URINE 0.2 (NORMAL) E.U./dL (NORMAL)
--- NOTE | 2019-09-07 17:07 | CT Report ---
PROCEDURE: Abdomen/Pelvis WO INDICATIONS: right flank pain TECHNIQUE: Noncontrast 5 mm thick sections acquired from the diaphragms to the symphysis. 5 mm coronal and sagi ttal reformats were then performed. For radiation dose reduction, the following was used: automated exposure control, adjustment of mA and/or kV according to patient size. COMPARISON: 05/06/2019 FINDINGS: Image quality: Excellent. ABDOMEN: Lung bases: Mild bibasilar atelectasis. Heart size is normal. Moderate-sized hilar hernia is again no lauren. Solid organs: Liver and spleen are normal in size. Large, hepatic cyst noted in the liver dome measu ring approximately 6.4 cm in diameter. Gallbladder is surgically absent. Pancreas is normal in conto urs. No adrenal nodules. Kidneys are normal in size, without hydronephrosis or nephrolithiasis. No ureteral stones visualized. Of note, there is a punctate density noted on image 46, series 3 which i s in very close proximity to the right ureter. It appears to be a phlebolith. This was present on [facility] CT. Peritoneum and bowel: Scant colonic diverticulosis without acute diverticulitis. Unenhanced bowel loo ps demonstrate normal wall thickness and caliber. No free fluid or air. Nodes and vessels: No retroperitoneal or mesenteric adenopathy by size criteria. Aorta and inferior vena cava are normal in caliber. Moderate atherosclerosis of the abdominal aorta and iliac vessels. Miscellaneous: No ventral hernias. PELVIS: Genitourinary: Bladder wall thickness is normal. Status post hysterectomy. Miscellaneous: No inguinal hernias or adenopathy. Bones: No suspicious bony lesions. No vertebral body compression fractures. Stable postsurgical marcos nges from posterior lower lumbar spinal fusion. IMPRESSION: 1. CT abdomen and pelvis without acute abnormalities. Specifically, no evidence for urolithiasis or o bstructive uropathy. 2. Moderate size hiatal hernia. 3. Large hepatic dome liver cyst. 4. Scant colonic diverticulosis without acute diverticulitis. 5. Status post cholecystectomy. Reviewed by: Bud Del Castillo MD on 09/07/2019 5:06 PM PDT Approved by: Bud Del Castillo MD on 09/07/2019 5:06 PM PDT Station ID: [id number]
[2019-09-07 18:14] VITALS: BP 158/97
== END 2019-09-07 18:46 | disposition home or self-care (01) ==
LOC: ED 14:55
DX: R10.31 Right lower quadrant pain (principal); M25.551 Pain in right hip; M54.5 Low back pain; K44.9 Diaphragmatic hernia without obstruction or gangrene; K76.89 Other specified diseases of liver; R35.0 Frequency of micturition; R32 Unspecified urinary incontinence; I10 Essential (primary) hypertension; Z79.82 Long term (current) use of aspirin; Z87.891 Personal history of nicotine dependence
CPT/HCPCS: 36415; 74176; 80053; 81003; 83690; 85025; 96374; 99284; J1170; 81001; 87086

== ENCOUNTER 2020-02-24 10:44 | Day surgery (SDC) | payer MEDICARE, OTHER ==
[2020-02-24] MEDS ORDERED: PROPOFOL 200 MG/20 ML VIAL IVP ONE (10:45)
[2020-02-24] MEDS ORDERED: LACTATED RINGERS 1,000 ML IV ONE (11:48)
--- NOTE | 2020-02-24 12:44 | ANESTHESIA ---
Pre-Anesthesia VS, & Labs - Diagnosis history of colon cancer - Procedure colonoscopy Vital Signs: Temp Pulse Resp BP Pulse Ox 36 C L 64 18 149/56 H 98 02/24/20 11:23 02/24/20 11:23 02/24/20 11:23 02/24/20 11:23 02/24/20 11:23 Height: 5 ft Weight (kg): 65.77 kg Body Mass Index: 28.3 BMI Classification: Overweight - NPO >8 hours - Is Patient ?: No Home Medications and Allergies Home Medications: Ambulatory Orders Hyoscyamine [Levsin] 0.25 mg SL DAILY 02/21/20 Aspirin [Aspir-Low] 81 mg PO DAILY 09/15/15 oxyCODONE [Roxicodone] 5 mg PO Q8HR PRN 09/15/15 Diclofenac Sodium [Voltaren] 1 unit TOP ONCE PRN 11/04/16 Fluticasone Propionate 1 spray NS DAILY PRN 11/04/16 Cholecalciferol (Vitamin D3) [Vitamin D] 5,000 unit PO DAILY 01/02/17 Acetaminophen 500 mg PO Q8HR PRN 10/03/17 Gabapentin 300 mg PO QID 10/03/17 Amlodipine Besylate 10 mg ORAL DAILY 09/07/19 Oxycodone HCl/Acetaminophen [Percocet 10-325 mg Tablet] 1 each PO DAILY PM 09/07/19 Docusate Sodium 250Mg Capsule [Colace 250Mg Capsule] 1 cap PO DAILY 09/22/19 Zahl-3/Dha/Epa/Fish Oil [Zahl 3 500 Softgel] 1 cap PO DAILY 09/22/19 Sennosides [Senna] 1 tab PO TID 09/22/19 Hyoscyamine [Levsin] 0.25 mg SL DAILY 02/21/20 Allergies/Adverse Reactions: Allergies Allergy/AdvReac Type Severity Reaction Status Date / Time codeine Allergy Unknown Verified 09/22/19 16:21 erythromycin base Allergy Unknown Verified 09/22/19 16:21 amoxicillin AdvReac Dizziness, Verified 02/21/20 12:14 nausea doxycycline AdvReac Nausea Verified 09/22/19 16:21 Anes History & Medical History - Anesthetic History Anesthesia Complications: reports: No previous complications - Medical History Cardiovascular: reports: Hypertension, High cholesterol Pulmonary: reports: COPD, Shortness of breath Gastrointestinal: reports: None Urinary: reports: Incontinence Neuro: reports: None Musculoskeletal: reports: Osteoarthritis, Osteoporosis, Chronic back pain Endocrine/Autoimmune: reports: None Blood Disorders: reports: None Skin: reports: None Smoking Status: Current every day smoker (1/2 pack per day for 40 years) Psychosocial: reports: Opioid History of Cancer?: Yes (breast and colon. s/p chemo ) - Surgical History General: Cholecystectomy, Appendectomy, Bowel surgery Eyes Ears Nose Throat (EENT): Cataracts Gynecologic: Hysterectomy Orthopedic: Rotator cuff repair, Spine surgery, Other Exam General: Alert, Oriented x3, Cooperative, No acute distress Dental: WNL Mouth Openin Fingerbreadth Neck Mobility: Normal Mallampati classification: III Thyromental Distance: 4-6 cm Mental/Cognitive Status: Alert/Oriented X3, Normal for patient Plan Anesthesia Type: MAC Consent for Procedure(s) Verified and Reviewed: Yes Code Status: Attempt Resuscitation ASA classification: 3-Severe systemic disease Is this case an emergency?: No
[2020-02-24] MEDS ORDERED: LACTATED RINGERS 500 ML IV ONE (13:17)
[2020-02-24 13:45] VITALS: BP 153/62
--- NOTE | 2020-02-24 16:29 | ANESTHESIA POST OP EVALUATION ---
Anesthesia Post Eval - Post Anesthesia Eval Vitals: Last Vital Signs Temp 36.0 C L 02/24/20 13:44 Pulse 61 02/24/20 13:44 Resp 16 02/24/20 13:44 BP 153/62 H 02/24/20 13:44 Pulse Ox 99 02/24/20 13:44 CV Function Including HR & BP: positive: Stable Pain Control: positive: Satisfactory Nausea & Vomiting: positive: Negative Mental Status: positive: Baseline Respiratory Status: Airway Patent Hydration Status: Satisfactory Anesthesia Complications: positive: None
== END 2020-02-24 10:45 | disposition home or self-care (01) ==
LOC: SDS 10:44
PROVIDERS: ATTEND Surgery
DX: Z12.11 Encounter for screening for malignant neoplasm of colon (principal); Z85.038 Personal history of other malignant neoplasm of large intestine; Z86.010 Personal history of colon polyps; G89.29 Other chronic pain; M79.605 Pain in left leg; Z74.09 Other reduced mobility; I10 Essential (primary) hypertension; E78.5 Hyperlipidemia, unspecified; J44.9 Chronic obstructive pulmonary disease, unspecified; R32 Unspecified urinary incontinence; M19.90 Unspecified osteoarthritis, unspecified site; F17.210 Nicotine dependence, cigarettes, uncomplicated; Z79.891 Long term (current) use of opiate analgesic; Z79.82 Long term (current) use of aspirin; Z79.899 Other long term (current) drug therapy

== ENCOUNTER 2020-04-25 11:20 | Outpatient (CLI) | payer MEDICARE, OTHER ==
--- NOTE | 2020-04-26 12:45 | Mammography Report ---
BILATERAL DIGITAL DIAGNOSTIC MAMMOGRAM 3D/2D: 04/25/2020 CLINICAL: Routine screening. Personal history of right breast cancer. Comparison is made to exams dated: 03/03/2019 mammogram, 09/07/2018 mammogram, 12/31/2016 mammogram, 12/31/2016 ultrasound biopsy, 12/23/2016 ultrasound, and 12/23/2016 mammogram - [facility]. There are scattered fibroglandular elements in both breasts. There is a stable benign fine and vascular calcification in the right breast central to the nipple mi ddle depth. There are not significantly changed since 2017. No new density near the lumpectomy site. No other significant masses, calcifications, or other findin gs are seen in either breast. IMPRESSION: BENIGN There is no mammographic evidence of malignancy. A 1 year screening mammogram is recommended. Exam findings were conveyed to the patient. Patient is advised to monitor for significant change. This exam was interpreted at Station ID: [id number]. NOTE: For mammograms, a report in lay terms will be sent to the patient. Approximately 15% of breast malignancies will not be visualized mammographically. In the management of a palpable breast mass, a negative mammogram must not discourage biopsy of a clinically suspicious lesion. Electronically Signed By: Rey Patricia M.D. slc/:04/25/2020 12:56:45 ACR BI-RADS Category 2: Benign Finding(s) 3342F PARENCHYMAL PATTERN: (A) - The breast(s) demonstrate(s) scattered fibroglandular densities. BI-RADS CATEGORY: (2) - 2 RECOMMENDATION: (ANNUAL) - Recommend routine annual screening mammography. [id number] 1 year screening LATERALITY: (B)
== END 2020-04-25 11:21 | disposition home or self-care (01) ==
LOC: DI 11:20
PROVIDERS: ATTEND Internal Medicine
DX: C50.211 Malignant neoplasm of upper-inner quadrant of right female breast (principal)

== ENCOUNTER 2020-11-06 15:38 | Outpatient (CLI) | payer MEDICARE, OTHER | END 2020-11-06 15:39 | disposition home or self-care (01) | LOC: COV 15:38 | PROVIDERS: ATTEND Family Medicine | DX: R06.02 Shortness of breath (principal); R09.89 Other specified symptoms and signs involving the circulatory and respiratory systems; Z20.822 Contact with and (suspected) exposure to COVID-19 ==

== ENCOUNTER 2021-01-08 10:25 | Outpatient (CLI) | payer MEDICARE, OTHER ==
[2021-01-08] MEDS ORDERED: ALBUTEROL 1 PUFF INH STA (12:36)
== END 2021-01-08 10:26 | disposition home or self-care (01) ==
LOC: RT 10:25
PROVIDERS: ATTEND Family Medicine
DX: R06.02 Shortness of breath (principal); J44.9 Chronic obstructive pulmonary disease, unspecified
CPT/HCPCS: 94060

== ENCOUNTER 2021-01-25 10:51 | Outpatient (CLI) | payer MEDICARE, OTHER ==
--- NOTE | 2021-01-25 13:37 | CARDIAC PROCEDURE NOTE ---
Stress Test Report Service Date: 01/25/21 Service Time: 11:00 Ordering Provider: Abe Calixto D.O. Indication for Test: Assess exertional dyspnea. Significant Medical History: -Sydney reports treated hypertension and cigarette smoking for many years, with success in achieving abstinence from the latter about 3 months ago. She has longstanding orthopedic issues, including a spinal dinora and chronic left leg pain, as well as peripheral neuropathy, that limit her exertional tolerance and for which she uses a walker. However with this accommodation she can generally walk at least a few hundred yards on flat ground. -Within the early weeks following cessation of cigarette smoking she began to note episodic worsening of exertional dyspnea and reported this to Dr. Calixto, who ordered a chest CT scan that did not show evidence of parenchymal disease or malignancy. Therefore she is referred for a stress study to assess for a potential ischemic contribution to her exertional dyspnea. -Discussing further with her, she reports starting amlodipine about 12-18 months ago for hypertension, with gradual onset of ankle edema about 9 to 12 months ago. It is not especially troublesome to her and it is not associated with paroxysmal nocturnal dyspnea, orthopnea or marked weight gain. Type of Stress Test: ETT with Echocardiography Procedure: -Exercise Treadmill Test- After signing informed consent, the patient underwent resting echo imaging and then performed treadmill exercise using a Modified Alexander protocol. The patient exercised for 3 minutes 21 seconds and achieved a peak heart rate of 118 (84 percent predicted maximum heart rate for age), and an estimated workload of 2.6 METS. The test was terminated due to shortness of breath and leg pain that prevented her from continuing exercise. Resting heart rate: 69 Peak heart rate: 118 Normal response to exercise. Resting BP: 142/70 Peak BP: 179/65 Normal BP response to exercise. Rhythm during exercise: Sinus rhythm throughout, with very rare isolated PVCs. Symptoms: Moderate shortness of breath, though orthopedic issues were more predominant as cause of exercise termination. EKG at rest showed normal sinus rhythm with isoelectric ST segments and T-wave inversion in leads I, aVL, V4-V6. EKG at peak stress showed no ischemia by EKG criteria. In Recovery heart rate and blood pressure rapidly returned to baseline levels. Echo imaging was performed at rest and with stress. Resting imaging revealed small left ventricular cavity size with moderate concentric left ventricular hypertrophy and normal wall motion throughout. Following peak stress all segments showed normal augmentation of contractility, results indicative of no evidence of prior infarct or inducible ischemia. On rest imaging there was also moderate mitral annular calcification and valve leaflet thickening, with mild mitral stenosis (peak/mean gradients 10 mmHg/4 mmHg) and calculated mitral valve area of 2.1 cm2. Based on tricuspid regurgitation jet velocity estimated right ventricular/pulmonary artery systolic pressure was elevated at 41 mm Hg, with normal central venous pressure (0-5 mmHg). See separate echo report for further details. IArcadio MD, was present throughout this treadmill stress study and supervised it in its entirety. Summary: 1) Exercise tolerance at least moderately reduced for age as evidenced by attainment of 2.6 METS. No ZORAIDA is available for the modified Alexander protocol. 2) Abnormal resting EKG, with anterolateral T wave inversion. 3) Borderline adequate level of exercise (84% PMHR) was achieved on this treadmill stress test. 4) Normal BP response to exercise. 5) No ischemic changes by EKG or echo criteria were seen following peak stress. 6) Screening echo images revealed normal resting LV size and systolic function, with thickening/calcification of the mitral apparatus, with a tricuspid regurtitant jet predicting RV/PA systolic pressure of 41, plus CVP (0-5), thus 41-46 mmHg. See separate echo report for more detail. CONCLUSIONS: 1) Limited exertional tolerance, likely multifactorial and including mild mitral stenosis, long smoking history, orthopedic issues and peripheral neuropathy. 2) No EKG or echo evidence of ischemia at workload attained. 3) In the absence of EKG/echo evidence of stress-associated ischemia, but with thickening/calcification of mitral apparatus and elevated RV/PA systolic pressure, it appears that these abnormalities are likely contributing to patient's exertional dyspnea. 5) Patient probably has amlodipine-associated peripheral edema and it may be reasonable to trial her on an alternative agent to reduce blood pressure AND heart rate (to enhance ventricular filling), such as one of the vasodilating beta-blockers (carvedilol or labetalol) which may also help with symptom reduction. 6) She should have a dedicated repeat diagnostic echocardiogram in 6-12 months to follow her mitral valve disease, earlier in this period should there be concerns for worsening exertional dyspnea.
== END 2021-01-25 10:52 | disposition home or self-care (01) ==
LOC: DI 10:51
PROVIDERS: ATTEND Family Medicine
DX: R06.02 Shortness of breath (principal); R94.31 Abnormal electrocardiogram [ECG] [EKG]; Z87.891 Personal history of nicotine dependence; R06.09 Other forms of dyspnea
CPT/HCPCS: 93350

== ENCOUNTER 2022-07-16 19:55 | Emergency (ER) | payer MEDICARE, OTHER ==
[2022-07-16] MEDS ORDERED: SODIUM CHLORIDE 0.9% 1,000 ML IV STA (21:06)
--- NOTE | 2022-07-16 21:18 | ED Physician Documentation ---
History of Present Illness - Stated complaint Stated Complaint: CONFUSION/NAUSEA - Chief complaint Chief Complaint: Neuro - History obtained from History obtained from: Patient, Family - Additonal information Additional information: The pt is BB daughter to the ED for CC of increased confusion today. The pt is suspected to have taken extra of her medication (gabapentin) by accident, though this is not known with certainty. The pt states she feels a little "slow". She is also feeling a bit nauseated, but has not vomited. No fevers/chills. No abd pn, CP, or SOB. She has not seemed ill with anything else lately. No focal neurologic deficits. The pt seemed normal yesterday, per daughter. PD PAST MEDICAL HISTORY - Past Medical History Cardiovascular: Hypertension, High cholesterol Respiratory: COPD, Shortness of breath Neuro: None Endocrine/Autoimmune: None GI: None VP RESEARCH: None, Breast cancer : Incontinence HEENT: Chronic vision loss Psych: None Musculoskeletal: Osteoarthritis, Osteoporosis, Chronic back pain Derm: None - Past Surgical History Past Surgical History: Yes General: Cholecystectomy, Appendectomy, Bowel surgery Ortho: Rotator cuff repair, Spine surgery, Other /VP RESEARCH: Hysterectomy HEENT: Cataracts - Present Medications Home Medications: Ambulatory Orders Medication Instructions Recorded Confirmed Aspirin [Aspir-Low] 81 mg PO DAILY 09/15/15 12/21/20 oxyCODONE [Roxicodone] 5 mg PO Q8HR PRN 09/15/15 12/21/20 Diclofenac Sodium [Voltaren] 1 unit TOP ONCE PRN 11/04/16 12/21/20 Cholecalciferol (Vitamin D3) 5,000 unit PO DAILY 01/02/17 12/21/20 [Vitamin D] Acetaminophen 500 mg PO Q8HR PRN 10/03/17 12/21/20 Gabapentin 300 mg PO QID 10/03/17 12/21/20 Amlodipine Besylate 10 mg ORAL DAILY 09/07/19 12/21/20 Oxycodone HCl/Acetaminophen 1 each PO DAILY PM PRN 09/07/19 12/21/20 [Percocet 10-325 mg Tablet] Docusate Sodium 250Mg Capsule 1 cap PO DAILY 09/22/19 12/21/20 [Colace 250Mg Capsule] Orma-3/Dha/Epa/Fish Oil [Orma 3 1 cap PO DAILY 09/22/19 12/21/20 500 Softgel] Sennosides [Senna] 3 tab PO QPM 09/22/19 12/21/20 hydroCHLOROthiazide [Hydrodiuril] 12.5 mg PO DAILY 12/21/20 12/21/20 Sulfamethox/Trimeth 800/160 1 each PO BID #14 tablet 07/17/22 [Bactrim Ds 800/160] - Allergies Allergies/Adverse Reactions: Allergies Allergy/AdvReac Type Severity Reaction Status Date / Time codeine Allergy Unknown Verified 07/16/22 20:07 erythromycin base Allergy Unknown Verified 07/16/22 20:07 amoxicillin AdvReac Dizziness, Verified 07/16/22 20:07 nausea doxycycline AdvReac Nausea Verified 07/16/22 20:07 - Social History Does the pt smoke?: Yes Smoking Status: Current every day smoker (1/2 pack per day for 40 years) Does the pt drink ETOH?: Yes Does the pt have substance abuse?: No - Immunizations Immunizations are current?: Yes - POLST Patient has POLST: No PD ED PE NORMAL - Vitals Vital signs reviewed: Yes - General General: No acute distress, Well developed/nourished, Other (alert, conversant, answers questions appropriately, but somewhat unclear on events of the morning.) - HEENT HEENT: Atraumatic, PERRL, EOMI, Moist mucous membranes - Neck Neck: Supple, no meningeal sign - Cardiac Cardiac: RRR, No murmur - Respiratory Respiratory: No respiratory distress, Clear bilaterally - Abdomen Abdomen: Soft, Non tender, Non distended - Derm Derm: Warm and dry - Extremities Extremities: No deformity - Neuro Neuro: Alert and oriented X 3 - Psych Psych: Normal mood, Normal affect Results - Vitals Vitals: Oxygen O2 Source Room air - EKG (time done) 2017 EKG releavant findings:: EKG personally interpreted by author of this note. Relevant findings are: Rate: Rate (enter#) (82) Rhythm: NSR [place]: Normal Intervals: Normal IN Ischemia: Normal ST segments Compare to prior EKG: Old EKG unavailable Computer interpretation: Agree with computer - Labs Labs: Microbiology 07/16/22 21:39 Urine Culture - Final Urine,Random Escherichia Coli Laboratory Tests 07/16/22 07/16/22 07/16/22 21:22 21:22 21:22 WBC 7.1 RBC 4.25 Hgb 12.0 Hct 37.8 MCV 88.9 MCH 28.2 MCHC 31.7 L RDW 14.8 Plt Count 188 MPV 9.7 Neut # (Auto) 4.1 Lymph # (Auto) 1.9 [place] # (Auto) 0.8 Eos # (Auto) 0.3 Baso # (Auto) 0.0 Absolute Nucleated RBC 0.00 Nucleated RBC % 0.0 Sodium 139 Potassium 3.4 L Chloride 103 Carbon Dioxide 23 Anion Gap 13.0 BUN 19 Creatinine 0.8 Estimated GFR (MDRD) 69 L Glucose 108 H Calcium 9.3 Total Bilirubin 0.6 AST 20 ALT 13 Alkaline Phosphatase 68 Troponin I High Sens 16.6 H* Total Protein 7.2 Albumin 3.7 Globulin 3.5 Albumin/Globulin Ratio 1.1 Lipase 35 Urine Color Urine Clarity Urine pH Ur Specific [place] Urine Protein Urine Glucose (UA) Urine Ketones Urine Occult Blood Urine Nitrite Urine Bilirubin Urine Urobilinogen Ur Leukocyte Esterase Urine RBC Urine WBC Urine WBC Clumps Ur Squamous Epith Cells Urine Bacteria Ur Microscopic Review Urine Culture Comments 07/16/22 21:39 WBC RBC Hgb Hct MCV MCH MCHC RDW Plt Count MPV Neut # (Auto) Lymph # (Auto) [place] # (Auto) Eos # (Auto) Baso # (Auto) Absolute Nucleated RBC Nucleated RBC % Sodium Potassium Chloride Carbon Dioxide Anion Gap BUN Creatinine Estimated GFR (MDRD) Glucose Calcium Total Bilirubin AST ALT Alkaline Phosphatase Troponin I High Sens Total Protein Albumin Globulin Albumin/Globulin Ratio Lipase Urine Color YELLOW Urine Clarity CLEAR Urine pH 7.0 Ur Specific [place] 1.015 Urine Protein NEGATIVE Urine Glucose (UA) NEGATIVE Urine Ketones NEGATIVE Urine Occult Blood NEGATIVE Urine Nitrite NEGATIVE Urine Bilirubin NEGATIVE Urine Urobilinogen 0.2 (NORMAL) Ur Leukocyte Esterase MODERATE H Urine RBC 0-5 Urine WBC 11-25 H Urine WBC Clumps PRESENT Ur Squamous Epith Cells RARE Squamous Urine Bacteria Few Ur Microscopic Review INDICATED Urine Culture Comments INDICATED - Rads (name of study) head CT Relevant Findings:: Final report received, See rad report (nad) PD Medical Decision Making - ED course Complexity details: reviewed results, re-evaluated patient, considered differential, d/w patient, d/w family ED course: The pt was worked up with CBC, ER abd panel, EKG, UA, and CT head, all of which were ordered and reviewed by me. She was also given a liter of NS. The pt's work-up was largely negative, except for a positive UA. Given the nausea and confusion, I suspected a UTI, and discussed with daughter that we would treat for this. The pt looked and reported feeling better. I felt she was stable for d/c home. We have discussed home management of the sx, as well as the usual indications for return. Departure - Departure Disposition: Home, Self Care Clinical Impression: UTI (urinary tract infection) Qualifiers: Urinary tract infection type: acute cystitis Hematuria presence: without hematuria Qualified Code(s): N30.00 - Acute cystitis without hematuria Condition: Stable Instructions: ED UTI Cystitis Female Prescriptions: Sulfamethox/Trimeth 800/160 [Bactrim Ds 800/160] 1 each PO BID #14 tablet Comments: Extensive testing was done today and largely looked good. The blood work was unremarkable and the head CT did not show anything other than age-related changes. The urinalysis was moderately positive for infection and you have been started on antibiotics for this today. This may be part of the reason your stomach has been upset and you have been a little more confused than usual. The first dose of antibiotics has been given in the emergency department but the remainder has been sent as an electronic prescription to the [facility] pharmacy in [place], your pharmacy of choice on record. Please take your next dose tomorrow morning. Discharge Date/Time: 07/17/22 01:13
[2022-07-16 21:27] LABS: BASOPHILS % (AUTO) 0.6 %; EOSINOPHILS # (AUTO) 0.3 10^3/uL (0.0-0.7); EOSINOPHILS % (AUTO) 3.7 %; HCT - HEMATOCRIT 37.8 % (37.0-47.0); LYMPHOCYTES # (AUTO) 1.9 10^3/uL (1.5-3.5); LYMPHOCYTES % (AUTO) 26.2 %; MEAN CORPUSCULAR HEMOGLOBIN 28.2 pg (27.0-31.0); MEAN CORPUSCULAR HGB CONC 31.7 g/dL (32.0-36.0); MEAN CORPUSCULAR VOLUME 88.9 fL (81.0-99.0); MEAN PLATELET VOLUME 9.7 fL (7.9-10.8); MONOCYTES # (AUTO) 0.8 10^3/uL (0.0-1.0); MONOCYTES % (AUTO) 11.2 %; NEUTROPHILS # (AUTO) 4.1 10^3/uL (1.5-6.6); PLT - PLATELET COUNT 188 10^3/uL (130-450); RED BLOOD COUNT 4.25 10^6/uL (4.20-5.40); RED CELL DISTRIBUTION WIDTH 14.8 % (12.0-15.0); WHITE BLOOD COUNT 7.1 x10^3/uL (4.8-10.8)
[2022-07-16 21:40] LABS: ALBUMIN 3.7 g/dL (3.2-5.5); ALBUMIN/GLOBULIN RATIO 1.1 (1.0-2.2); BILIRUBIN,TOTAL 0.6 mg/dL (0.2-1.0); CALCIUM 9.3 mg/dL (8.5-10.3); CREATININE 0.8 mg/dL (0.4-1.0); POTASSIUM 3.4 mmol/L (3.5-5.0); TOTAL PROTEIN 7.2 g/dL (6.7-8.2)
[2022-07-16 21:48] LABS: BILIRUBIN,URINE NEGATIVE (NEGATIVE); GLUCOSE, URINE (UA) NEGATIVE (NEGATIVE); KETONES,URINE (UA) NEGATIVE (NEGATIVE); LEUKOCYTE ESTERASE, URINE MODERATE (NEGATIVE); NITRITE,URINE NEGATIVE (NEGATIVE); OCCULT BLOOD,URINE NEGATIVE (NEGATIVE); PROTEIN,URINE NEGATIVE (NEGATIVE); UROBILINOGEN,URINE 0.2 (NORMAL) E.U./dL (NORMAL)
[2022-07-16 21:51] LABS: CLARITY,URINE CLEAR (CLEAR)
[2022-07-16 21:56] LABS: BACTERIA,URINE Few /HPF (None Seen); RBC,URINE 0-5 /HPF (0-5); SQUAMOUS EPITHELIAL CELL,UR RARE Squamous (<= Few); WBC CLUMPS,URINE PRESENT
--- NOTE | 2022-07-16 22:23 | CT Report ---
PROCEDURE: HEAD WO INDICATIONS: confusion TECHNIQUE: Noncontrast 4.5 mm thick angled axial sections acquired from the foramen magnum to the vertex. For r adiation dose reduction, the following was used: automated exposure control, adjustment of mA and/or kV according to patient size. COMPARISON: None. FINDINGS: Image quality: Excellent. CSF spaces: There is moderate cerebral volume loss with prominence of the ventricles and sulci. Basa l cisterns are patent. No extra-axial fluid collections. Brain: No intracranial hemorrhage, mass, or mass effect. Berg-white matter interface is preserved. T here are subcortical and periventricular white matter hypodensities consistent with mild chronic smal l vessel ischemic changes. Skull and face: Calvarium and visualized facial bones are intact, without suspicious lesions. Sinuses: Visualized sinuses and mastoids are clear. IMPRESSION: 1. No acute intracranial abnormality. 2. Moderate cerebral volume loss and mild chronic white matter small vessel ischemic changes. Reviewed by: Gumaro Avalos MD on 07/16/2022 10:21 PM PDT Approved by: Gumaro Avalos MD on 07/16/2022 10:21 PM PDT Station ID: [id number]
[2022-07-17] MEDS ORDERED: SULFAMETH/TRIMETH DS 800/160 MG TABLET PO STA (00:50)
[2022-07-17 00:55] VITALS: BP 129/73
== END 2022-07-17 01:13 | disposition home or self-care (01) ==
LOC: ED 19:55
DX: N30.00 Acute cystitis without hematuria (principal); F17.200 Nicotine dependence, unspecified, uncomplicated
CPT/HCPCS: 36415; 70450; 80053; 81001; 83690; 84484; 85025; 87086; 93005; 99284; A9270; 81003

== ENCOUNTER 2023-01-23 12:07 | Outpatient (CLI) | payer MEDICARE, OTHER ==
--- NOTE | 2023-01-23 15:27 | CT Report ---
PROCEDURE: HEAD WO INDICATIONS: HEADACHE TECHNIQUE: Noncontrast 4.5 mm thick angled axial sections acquired from the foramen magnum to the vertex. For r adiation dose reduction, the following was used: automated exposure control, adjustment of mA and/or kV according to patient size. COMPARISON: CT head 07/16/2022 FINDINGS: Image quality: Excellent. The ventricular system and cortical sulci demonstrate atrophy, consistent for patient's stated age. There are areas of hypodensity in the periventricular and subcortical white matter. There is no acut e intra or extra-axial fluid collection. No acute hemorrhage, mass lesion or midline shift. Brainst em is unremarkable. Globes are symmetrical. Sinuses are aerated. Osseous structures are intact. IMPRESSION: 1. No acute intracranial process. 2. Moderate atrophy and chronic microvascular ischemic changes. Reviewed by: Emma Rivas MD on 01/23/2023 3:26 PM PST Approved by: Emma Rivas MD on 01/23/2023 3:26 PM PST Station ID: [id number]
== END 2023-01-23 12:08 | disposition home or self-care (01) ==
LOC: DI 12:07
PROVIDERS: ATTEND Student in an Organized Health Care Education/Training Program
DX: R51.9 Headache, unspecified (principal)